=== PATIENT | male | born 1995 | race Two or more races ===

== ENCOUNTER 2017-11-26 20:34 | Emergency (ER) | payer SELFPAY ==
[~2017-11-26] VITALS: Ht 172.7 cm; Wt 77.1 kg
--- NOTE | 2017-11-26 20:40 | NUR ---
PT B[place] FROM [place] STREETS. PER REPORT, PT WAS FOUND PASSED OUT. NO OBVIOUS TRAUMA. ADMITS TO BEEN DRINKING AND TAKING DRUGS. PT IS AAO, VERBALLY RESPONSIVE. STABLE VITALS. AWAITING MD REIS.
[2017-11-26] MEDS ORDERED: HALOPERIDOL LACTATE INJ 5 MG/ML VIAL ONE (20:57)
--- NOTE | 2017-11-26 20:58 | NUR ---
DR CARDOSO AT BEDSIDE FOR EVAL.
[2017-11-26] MEDS ORDERED: LORAZEPAM INJ 2 MG/ML VIAL ONE (21:17)
[2017-11-26] MEDS ORDERED: LORAZEPAM INJ 2 MG/ML VIAL IM ONE (21:30)
[2017-11-26] MEDS ORDERED: HALOPERIDOL LACTATE INJ 5 MG/ML VIAL IM ONE (21:30)
--- NOTE | 2017-11-26 21:41 | NUR ---
TRANSPORT AIRCREWMAN AT BEDSIDE FOR BLOOD DRAW.
[2017-11-26 22:56] LABS: BASOPHILS % (AUTO) 0.5 % (0.0-2.0); HEMATOCRIT 43 % (39-51); HEMOGLOBIN 14.5 g/dL (13.5-17.5); LYMPHOCYTES # (AUTO) 1.6 /CMM (0.8-4.8); LYMPHOCYTES % (AUTO) 20.1 % (20.0-44.0); MEAN CORPUSCULAR HEMOGLOBIN 32 PG (26.0-33.0); MEAN CORPUSCULAR HGB CONC 34 g/dl (31.0-36.0); MEAN CORPUSCULAR VOLUME 93 fL (80-96); MONOCYTES # (AUTO) 0.3 /CMM (0.1-1.30); MONOCYTES % (AUTO) 3.4 % (2.0-12.0); PLATELET COUNT (AUTO) 199 /CMM (150-450); RDW COEFFICIENT OF VARIATION 12.1 (11.5-15.0); RED BLOOD CELL COUNT(AUTO) 4.57 MIL/uL (4.5-6.0); WHITE BLOOD COUNT (AUTO) 7.8 K/uL (4.3-11.0)
[2017-11-26 23:12] LABS: CALCIUM, SERUM 8.2 mg/dL (8.5-10.1); CREATININE 0.8 mg/dL (0.6-1.3)
[2017-11-26 23:25] LABS: ALBUMIN 3.8 g/dL (3.4-5.0); BILIRUBIN,DIRECT 0.1 mg/dL (0.0-0.2); BILIRUBIN,TOTAL 0.4 mg/dL (0.2-1.0); TOTAL PROTEIN, SERUM 7.5 g/dL (6.4-8.2)
--- NOTE | 2017-11-26 23:28 | NUR ---
PT IS SLEEPING. ON MONITOR W/ STABLE VITALS.NAD NOTED. WILL CONT TO MONITOR.
[2017-11-26 23:29] LABS: SALICYLATE 1.2 mg/dL (2.8-20.0)
--- NOTE | 2017-11-27 00:14 | NUR ---
REPORT TO CHARGE NURSE VIKY FOR PAT.
--- NOTE | 2017-11-27 02:00 | NUR ---
Patient is resting comfortably in bed with eyes closed. Easily aroused. VSS
--- NOTE | 2017-11-27 03:19 | NUR ---
RECEIVED REPORT FROM MIKE SALMON FOR PAT. PT APPEARS COMFORTABLE. EASILY AROUSABLE. NAD NOTED.
--- NOTE | 2017-11-27 04:52 | NUR ---
PT AO AND AWAKE. DR. GUO MADE AWARE
--- NOTE | 2017-11-27 05:00 | NUR ---
PT DENIES HI/ SI. Patient discharged to home in stable condition. Written and verbal after care instructions given. Patient verbalizes understanding of instruction.ambulatory with a steady gait. Instructed pt not to drive. pt verbalize understanding.
[2017-11-27 05:06] VITALS: BP 110/57
== END 2017-11-27 05:08 | disposition home or self-care (01) ==
LOC: ER 20:37
DX: S00.81XA Abrasion of other part of head, initial encounter (principal); F19.959 Other psychoactive substance use, unspecified with psychoactive substance-induced psychotic disorder, unspecified; Z60.2 Problems related to living alone; X58.XXXA Exposure to other specified factors, initial encounter; Y93.9 Activity, unspecified; Y92.480 Sidewalk as the place of occurrence of the external cause; Y99.8 Other external cause status
CPT/HCPCS: 36415; 80048; 80076; 80329; 85025; 96372 ×2; 99284; A4606; G0480 ×2; J1630; J2060; Z7610

== ENCOUNTER 2018-07-20 00:07 | Emergency (ER) | payer BC ==
[~2018-07-20] VITALS: Ht 177.8 cm; Wt 79.4 kg
--- NOTE | 2018-07-20 00:40 | NUR ---
PT STATES +SI S/P DRINKING VODKA W/ PLAN TO CUT WRISTS. DENIES HI. PT IS AAOX4 AND WELL KEPT. SKIN WNL. NO S/S OF ACUTE DISTRESS NOTED. RESP EVEN AND UNLABORED. PT PLACED ON STREET PHOTOGRAPHER AND POX. PT SAFETY AND COMFORT MEASURES IN PLACE. MD BEDSIDE FOR EVAL. SI PRECAUTIONS IN PLACE. WILL CONTINUE TO MONITOR PT FOR SAFETY.
[2018-07-20 01:21] LABS: BASOPHILS % (AUTO) 0.7 % (0.0-2.0); EOSINOPHILS % (AUTO) 0.2 % (0.0-6.0); HEMATOCRIT 45 % (39-51); HEMOGLOBIN 15.2 g/dL (13.5-17.5); LYMPHOCYTES # (AUTO) 2.8 /CMM (0.8-4.8); LYMPHOCYTES % (AUTO) 47.9 % (20.0-44.0); MEAN CORPUSCULAR HEMOGLOBIN 32 PG (26.0-33.0); MEAN CORPUSCULAR HGB CONC 34 g/dl (31.0-36.0); MEAN CORPUSCULAR VOLUME 94 fL (80-96); MONOCYTES # (AUTO) 0.5 /CMM (0.1-1.30); MONOCYTES % (AUTO) 8.9 % (2.0-12.0); NEUTROPHILS # (AUTO) 2.5 /CMM (1.8-8.9); NEUTROPHILS % (AUTO) 42.3 % (43.0-81.0); PLATELET COUNT (AUTO) 233 /CMM (150-450); RDW COEFFICIENT OF VARIATION 14.3 (11.5-15.0); RED BLOOD CELL COUNT(AUTO) 4.74 MIL/uL (4.5-6.0); WHITE BLOOD COUNT (AUTO) 5.9 K/uL (4.3-11.0)
[2018-07-20 01:25] LABS: APPEARANCE,URINE CLEAR (CLEAR); BILIRUBIN,URINE NEGATIVE (NEGATIVE); BLOOD, URINE NEGATIVE Ery/uL (NEGATIVE); COLOR,URINE YELLOW (YELLOW); KETONES,URINE NEGATIVE (NEGATIVE); LEUKOCYTE ESTERASE ,URINE NEGATIVE (NEGATIVE); NITRITE, URINE NEGATIVE (NEGATIVE); PROTEIN,URINE NEGATIVE (NEGATIVE); UGLUCOSE NEGATIVE (NEGATIVE); UROBILINOGEN,URINE 0.2 EU/dL (0.2)
--- NOTE | 2018-07-20 01:29 | NUR ---
PT RESTING IN BED WITH EYES OPEN. NO S/S OF DISTRESS NOTED. WILL CONTINUE TO MONITOR PT.
[2018-07-20 01:34] LABS: CALCIUM, SERUM 8.3 mg/dL (8.5-10.1); CREATININE 0.9 mg/dL (0.6-1.3); POTASSIUM 3.9 mmol/L (3.5-5.1)
[2018-07-20 01:43] LABS: ALBUMIN 3.9 g/dL (3.4-5.0); BILIRUBIN,DIRECT 0.2 mg/dL (0.0-0.2); BILIRUBIN,TOTAL 1.2 mg/dL (0.2-1.0); TOTAL PROTEIN, SERUM 7.7 g/dL (6.4-8.2)
[2018-07-20 01:45] LABS: SALICYLATE 0.2 mg/dL (2.8-20.0)
--- NOTE | 2018-07-20 02:34 | NUR ---
Patient is resting comfortably in bed. No S/S of distress noted.
--- NOTE | 2018-07-20 02:59 | NUR ---
PT RESTING IN BED WITH EYES OPEN. NO S/S OF DISTRESS NOTED. WILL CONTINUE TO MONITOR PT.
--- NOTE | 2018-07-20 03:07 | NUR ---
PT'S PARENTS BEDSIDE
--- NOTE | 2018-07-20 03:18 | NUR ---
PSYCHIATRIC MEASUREMENT OPERATOR BEDSIDE WITH PT
--- NOTE | 2018-07-20 04:05 | NUR ---
Patient discharged to home in stable condition. Written and verbal after care instructions given. Patient verbalizes understanding of instruction. STABLE GAIT ON AMBULATION. NO S/S OF DISTRESS UPON DISCHARGE
[2018-07-20 04:06] VITALS: BP 121/77
== END 2018-07-20 04:07 | disposition home or self-care (01) ==
LOC: ER 00:12
DX: F10.20 Alcohol dependence, uncomplicated (principal); Y90.9 Presence of alcohol in blood, level not specified
CPT/HCPCS: 36415; 80048-TC; 80076-TC; 80305; 81000-TC; 85025-TC; A4606; G0480; Z7610